=== PATIENT | female | born 1975 ===

== ENCOUNTER 2017-03-05 23:21 | Emergency (ER) | payer SELFPAY ==
--- NOTE | 2017-03-06 00:15 | ED PDOC ---
HPI: SOB/CHF/COPD Time Seen by Provider: 03/05/17 23:40 Chief Complaint (Nursing): Shortness Of Breath Chief Complaint (Provider): Shortness of Breath and Pleuritic Chest Pain History Per: Patient History/Exam Limitations: no limitations Onset/Duration Of Symptoms: Days (x3 days) Current Symptoms Are (Timing): Still Present Associated Symptoms: Chest Pain (pleuritic chest pain). denies: Fever, Ankle/ Leg Swelling Additional Complaint(s): Sandra Mejias, a 42 year old female, presents to the ED with complaints of shortness of breath and pleuritic chest pain x3 days. The patient reports that the pain is in the center of her chest and she also feels like she is able to fully take a deep breath. Denies fever, cough and leg swelling. Past Medical History Reviewed: Historical Data, Nursing Documentation, Vital Signs Vital Signs: Last Vital Signs Temp 98.1 F 03/05/17 23:39 Pulse 71 03/05/17 23:39 Resp 22 03/06/17 00:15 BP 119/76 03/05/17 23:39 Pulse Ox 100 03/06/17 00:19 - Medical History PMH: No Chronic Diseases - Surgical History Surgical History: Cholecystectomy - Family History Family History: States: Unknown Family Hx - Home Medications Home Medications: Ambulatory Orders Medication Instructions Recorded Meclizine Hydrochloride [Antivert] 25 mg PO DAILY PRN #10 tab 10/29/14 Ondansetron ODT [Zofran ODT] 8 mg PO Q8 PRN #10 odt 10/29/14 Prednisone 20 mg PO DAILY #5 tab 10/29/14 Ondansetron [Zofran] 4 mg PO Q8H #21 tab 07/13/15 Cyclobenzaprine [Cyclobenzaprine 10 mg PO BID #15 tab 03/06/17 HCl] Ibuprofen [Motrin Tab] 600 mg PO Q6 #30 tab 03/06/17 - Allergies Allergies/Adverse Reactions: Allergies Allergy/AdvReac Type Severity Reaction Status Date / Time No Known Allergies Allergy Verified 03/05/17 23:39 Review of Systems Constitutional: Negative for: Fever Respiratory: Positive for: Shortness of Breath, Pleuritic Pain (pleuritic chest pain). Negative for: Cough Musculoskeletal: Positive for: Other (Deies leg swelling) Physical Exam - Reviewed Nursing Documentation Reviewed: Yes Vital Signs Reviewed: Yes - Physical Exam Appears: Positive for: Non-toxic, No Acute Distress Head Exam: Positive for: ATRAUMATIC, NORMAL INSPECTION, NORMOCEPHALIC Skin: Positive for: Normal Color, Warm, Dry Eye Exam: Positive for: Normal appearance, EOMI, PERRL ENT: Positive for: Normal ENT Inspection Neck: Positive for: Normal, Painless ROM, Supple Cardiovascular/Chest: Positive for: Regular Rate, Rhythm, Chest Non Tender. Negative for: Tachycardia Respiratory: Positive for: Normal Breath Sounds, Other (Point tenderness to sternum). Negative for: Wheezing, Respiratory Distress Gastrointestinal/Abdominal: Positive for: Normal Exam Back: Positive for: Normal Inspection Extremity: Positive for: Normal ROM. Negative for: Tenderness, Pedal Edema, Deformity, Swelling Neurologic/Psych: Negative for: Alert, Oriented, Gait - Laboratory Results Result Diagrams: 03/06/17 00:26 03/06/17 00:26 - ECG O2 Sat by Pulse Oximetry: 100 (RA) Pulse Ox Interpretation: Normal Medical Decision Making Medical Decision Makin Initial Impression: 42 year old female presenting with likely non cardiac chest pain rule out PE Initial Plan: * EKG * Basic Metabolic Panel * Troponin * CBC * D-dimer * Chest Xray * Toradol 15mg IVP * Reevaluation 100: Pt. reports that she's feeling much better, told her to f/u w/ Dr. Evelin Coronado at the clinic in 1-2 days, return precautions given. Scribe Attestation Documented by Marion Dobbins acting as a scribe for Jaquan Esposito MD. Provider Attestation All medical record entries made by the Scribe were at my direction and personally dictated by me. I have reviewed the chart and agree that the record accurately reflects my personal performance of the history, physical exam, medical decision making, and the department course for this patient. I have also personally directed, reviewed, and agree with the discharge instructions and disposition. Disposition - Clinical Impression Clinical Impression: Chest wall pain - Disposition Referrals: [facility] [Outside] Disposition Time: 01:00 Condition: STABLE Prescriptions: Cyclobenzaprine [Cyclobenzaprine HCl] 10 mg PO BID #15 tab Ibuprofen [Motrin Tab] 600 mg PO Q6 #30 tab Instructions: Chest Wall Pain (ED) Forms: [facility] (Vietnamese) Print Language: SURINAMESE
[2017-03-06 00:29] LABS: BASO # 0.1 K/uL (0.0-0.2); EOS # 0.3 K/uL (0.0-0.7); EOS % 3.1 % (0.0-4.0); LYMPH # 2.3 K/uL (1.0-4.3); LYMPH % 27.4 % (20.0-40.0); MEAN CELL VOLUME 87.6 fl (81.0-99.0); MEAN CORPUSCULAR HEMOGLOBIN 29.4 pg (27.0-31.0); MEAN CORPUSCULAR HGB CONC 33.6 g/dL (33.0-37.0); MEAN PLATELET VOLUME 7.7 fl (7.2-11.7); MONO # 0.6 K/uL (0.0-0.8); MONO % 6.7 % (0.0-10.0); NEUT # 5.2 K/uL (1.8-7.0); NEUT % 61.8 % (50.0-75.0); NRBC % 0.1 % (0.0-0.0); RED CELL DISTRIBUTION WIDTH 12.6 % (11.5-14.5); WHITE BLOOD COUNT 8.3 K/uL (4.8-10.8)
[2017-03-06 00:38] LABS: BLOOD UREA NITROGEN 17 mg/dl (7-17); CALCIUM 9.6 mg/dL (8.4-10.2); CARBON DIOXIDE 23 mmol/L (22-30); CHLORIDE 107 mmol/L (98-107); GFR AFRICAN-AMERICAN > 60; GLUCOSE,RANDOM 100 mg/dL (65-105); POTASSIUM 3.9 MMOL/L (3.6-5.0); SODIUM 139 mmol/l (132-148)
[2017-03-06 01:17] VITALS: BP 122/78; PULSE 78; RESP 16; TEMP 98.3; O2SAT 98
--- NOTE | 2017-03-06 13:53 | RAD ---
HISTORY: [age] sh chest pain, shortness of breath COMPARISON: 07/13/2011 TECHNIQUE: Chest PA and lateral FINDINGS: LUNGS: No active pulmonary disease. PLEURA: No significant pleural effusion identified. No pneumothorax apparent. CARDIOVASCULAR: Normal. OSSEOUS STRUCTURES: No significant abnormalities. VISUALIZED UPPER ABDOMEN: Normal. OTHER FINDINGS: None. IMPRESSION: No active disease. No significant interval change compared to the prior examination(s).
--- NOTE | 2017-03-08 18:34 | CARD ---
APPROVED REPORT EKG Measurement Heart [id number] <Conclusion> Normal sinus rhythm with sinus arrhythmia Left axis deviation Abnormal ECG
== END 2017-03-06 01:17 | disposition home or self-care (01) ==
LOC: H.ER 23:21
DX: R07.89 Other chest pain (principal); R60.0 Localized edema
CPT/HCPCS: 71020; 80048; 84484; 85025; 85378; 96374; 99284; J1885